=== PATIENT | female | born 1980 | race Caucasian/White ===

== ENCOUNTER 2018-08-06 08:03 | Emergency (ER) | payer OTHER ==
[~2018-08-06] VITALS: Ht 167.6 cm; Wt 88.5 kg
[~2018-08-06 08:03] MED LIST: COUGH; ZPAK PO
[2018-08-06 08:44] LABS: ABSOLUTE BASOPHILS 0.1 thou/uL (0.0-0.2); ABSOLUTE EOSINOPHILS 0.2 thou/uL (0.0-0.7); ABSOLUTE LYMPHOCYTES 1.5 thou/uL (0.8-5.3); ABSOLUTE MONOCYTES 0.4 thou/uL (0.0-1.2); ABSOLUTE NEUTROPHILS 5.2 thou/uL (1.6-8.1); BASOPHILS 0.9 %; EOSINOPHILS 2.4 %; HEMATOCRIT 41.5 % (37.0-47.0); HEMOGLOBIN 14.5 gm/dL (12.0-15.0); LYMPHOCYTES 19.9 %; MCH 29.5 pg (26.0-34.0); MCHC 34.9 g/dL (28.0-37.0); MCV 84.7 fL (80.0-100.0); MONOCYTES 5.8 %; MPV 8.5 fl. (7.2-11.1); NUCLEATED RBCS 0 /100WBC; PLATELET COUNT* 209 thou/uL (150-400); RDW-CV 12.5 % (10.5-14.5); WBC 7.3 thou/uL (4.0-11.0)
[2018-08-06 08:53] LABS: ANION GAP 10 mmol/L (7-16); BUN 17 mg/dL (7-18); CALCIUM 8.9 mg/dL (8.5-10.1); CHLORIDE 105 mmol/L (98-107); CO2 27 mmol/L (21-32); CREATININE 0.9 mg/dL (0.6-1.3); GLUCOSE 117 mg/dL (70-99); POTASSIUM 4.1 mmol/L (3.5-5.1); SODIUM 142 mmol/L (136-145)
[2018-08-06 09:03] LABS: ALKALINE PHOSPHATASE 114 U/L (46-116); SGOT 25 U/L (15-37); SGPT 63 U/L (30-65); TOTAL BILIRUBIN 0.2 mg/dL (<0.1-1.0); TOTAL PROTEIN 8.1 g/dL (6.4-8.2); TROPONIN-I LEVEL <0.06 ng/mL (<0.06)
[2018-08-06] MEDS ORDERED: ALLEGRA-D 24 H1 EACH PO (09:48)
[2018-08-06 10:00] VITALS: BP 121/72
--- NOTE | 2018-08-06 10:54 | EKG ---
[place] [address] ELECTROCARDIOGRAM REPORT Name: JUAN RODGERS Room: [facility]#: [id number] Admission: 08/06/18 Attend Phys: Discharge: 08/06/18 Date of : 84 Report #: [id number] THIS REPORT FOR: //name// [facility] ED Test Date: 2018-08-06 Test Time: 08:12:20 Pat Name: JUAN RODGERS Department: Room: Gender: F National Coverage Specialist: MADONNA : 1980 Requested By: Vern Luna Order Number: [id number] MD: Deshawn Bustamante Measurements Intervals [place] Rate: 86 P: 55 CA: 145 QRS: 44 QRSD: 88 T: 15 QT: 376 QTc: 450 Interpretive Statements Sinus rhythm Compared to ECG 05/20/2013 23:14:33 Sinus tachycardia no longer present Electronically Signed On 08-06-2018 10:54:10 CDT by Deshawn Bustamante [email or web address] <ELECTRONICALLY SIGNED> By: Deshawn Bustamante MD, [facility] 08/06/18 1054 0812 1 Deshawn Bustamante MD, FACC /EPI
== END 2018-08-06 10:00 | disposition home or self-care (01) ==
LOC: M.ERS 08:03
PROVIDERS: Emergency Medicine Emergency Medical Services
DX: R20.2 Paresthesia of skin (principal); Z88.1 Allergy status to other antibiotic agents; Z88.8 Allergy status to other drugs, medicaments and biological substances; Z90.49 Acquired absence of other specified parts of digestive tract

== ENCOUNTER 2018-08-07 10:03 | Inpatient (IN) | payer OTHER ==
[~2018-08-07] VITALS: Ht 170.2 cm; Wt 89.6 kg
[~2018-08-07 10:03] MED LIST changes: +ALLEGRA-D 24 H1 EACH PO
[2018-08-07 10:31] LABS: ABSOLUTE BASOPHILS 0.1 thou/uL (0.0-0.2); ABSOLUTE EOSINOPHILS 0.1 thou/uL (0.0-0.7); ABSOLUTE LYMPHOCYTES 1.3 thou/uL (0.8-5.3); ABSOLUTE MONOCYTES 0.4 thou/uL (0.0-1.2); ABSOLUTE NEUTROPHILS 9.3 thou/uL (1.6-8.1); BASOPHILS 0.6 %; EOSINOPHILS 0.8 %; HEMATOCRIT 44.4 % (37.0-47.0); HEMOGLOBIN 15.3 gm/dL (12.0-15.0); LYMPHOCYTES 11.8 %; MCHC 34.6 g/dL (28.0-37.0); MCV 83.9 fL (80.0-100.0); MONOCYTES 3.3 %; MPV 8.5 fl. (7.2-11.1); NUCLEATED RBCS 0 /100WBC; PLATELET COUNT* 211 thou/uL (150-400); POLYS 83.5 %; RBC 5.29 mil/uL (4.20-5.00); RDW-CV 12.9 % (10.5-14.5); WBC 11.2 thou/uL (4.0-11.0)
[2018-08-07 10:35] LABS: ANION GAP 13 mmol/L (7-16); BUN 10 mg/dL (7-18); CALCIUM 9.5 mg/dL (8.5-10.1); CHLORIDE 103 mmol/L (98-107); CO2 26 mmol/L (21-32); CREATININE 0.8 mg/dL (0.6-1.3); GLUCOSE 122 mg/dL (70-99); POTASSIUM 4.1 mmol/L (3.5-5.1); SODIUM 142 mmol/L (136-145)
[2018-08-07 10:42] LABS: APTT 24.7 Seconds (25.0-31.3); PROTIME 10.5 Seconds (9.20-11.50)
[2018-08-07 10:45] LABS: ALBUMIN 4.3 g/dL (3.4-5.0); ALKALINE PHOSPHATASE 119 U/L (46-116); SGOT 27 U/L (15-37); SGPT 65 U/L (30-65); TOTAL BILIRUBIN 0.4 mg/dL (<0.1-1.0); TOTAL PROTEIN 8.7 g/dL (6.4-8.2); TROPONIN-I LEVEL <0.06 ng/mL (<0.06)
--- NOTE | 2018-08-07 13:26 | NUR ---
ST ARRIVED FOR SWALLOW EVAL
[2018-08-07 16:45] VITALS: BP 110/68
[2018-08-07 18:15] VITALS: BP 127/68
--- NOTE | 2018-08-07 19:13 | NUR ---
VSS, ASSUMED CARE FROM ER, PT IS A&O4 AND ON RA AND UP WITH STAND BY, NIH IS ONE, SHE IS APHASIC, ANF HAS NUMBNESS IN HANDS AND FEET, PT DENIES ANY PAIN, SHE IS TRACING SR ON THE MONITOR, PT IS GOING DOWN TO MRI NOW, WILL FOLLOW WITH PLAN OF CARE,
[2018-08-07 20:00] VITALS: BP 117/57
[2018-08-08] VITALS: BP 118/79
[2018-08-08 04:00] VITALS: BP 110/54
--- NOTE | 2018-08-08 04:35 | NUR ---
ASSUMED PT CARE AT 1930. ASSESSMENT COMPLETED CHARTED. ABLE TO MAKE NEEDS KNOWN. UP WITH SBA. NO C/O PAIN UNTIL LATER WHEN SHE HAD A HEADACHE. GAVE PRN PAIN MEDICATION AND PT IS NOW RESTING IN BED COMFORTABLY. NIH WAS A 3 DUE TO NUMBNESS AND APHASIA. PT STAYING THE NIGHT. FAMILY WAS IN ROOM TILL ABOUT MIDNIGHT. NOTIFIED DR OF MRI RESULTS WITH NNO. WILL CONTINUE TO MONITOR.
[2018-08-08 08:52] VITALS: BP 125/77
[2018-08-08 11:30] VITALS: BP 125/72
--- NOTE | 2018-08-08 14:00 | NUR ---
vss, assumed care in the am, ASSESSMENT PERFORMED AND CHARTED, FALL PRECAUTIONS IN PLACE AND CALL LIGHT IN REACH, PT IS A&O4 ON RA AND UP WITH STAND BY, PT STATES HEADACH AND RATES PAIN 5 OUT OF 10, PT HAD LP TAP, MRI AND LABS DONE TODAY, PT GOAL IS TO SIT UP IN CHAIR, AND TAKE SHOWER, GOAL WAS MET, HOURLY ROUNDS COMPLETED AND WILL FOLLOW WITH PLAN OF CARE.
[2018-08-08 16:00] VITALS: BP 121/68
[2018-08-08 16:03] LABS: CSF PROTEIN 39.9 mg/dl (15-45)
[2018-08-08 16:07] LABS: IgA 315 mg/dL (87-352); IgG 1189 mg/dL (700-1600); IgM 71 mg/dL (26-217)
[2018-08-08 16:40] LABS: CHOLESTEROL 212 mg/dL (<200); HDL CHOLESTEROL 27 mg/dL (>40); LDL CHOLESTEROL 159 mg/dL (<100); SERUM ASSESSMENT CLEAR; TC:HDL 7.9 Ratio (Not establshd); TRIGLYCERIDE 133 mg/dL (<150); VLDL 27 mg/dL (<40)
[2018-08-08 16:42] LABS: CSF CLARITY CLEAR; CSF COLOR COLORLESS; CSF RBC 2 /mm3; CSF WBC 0 /mm3 (0-10); VOLUME 12 ml
[2018-08-08 20:00] VITALS: BP 115/78
[2018-08-09] VITALS: BP 118/77
[2018-08-09 04:00] VITALS: BP 133/84
--- NOTE | 2018-08-09 06:47 | NUR ---
ASSUMED PT CARE AT 1930. ASSESSMENT COMPLETED CHARTED. ABLE TO MAKE NEEDS KNOWN. UP WITH 1 ASSIST DUE TO WEAKNESS AND NUMBNESS. STAYS IN ROOM WITH PT. PT IS NERVOUS BECAUSE SHE IS NOT SURE WHAT IS HAPPENING TO HER. NIH OF 3 THIS SHIFT. C/O HEADACHE AND GAVE PRN PAIN MEDICATION. WILL CONTINUE TO MONITOR.
[2018-08-09 08:00] VITALS: BP 118/71
--- NOTE | 2018-08-09 09:53 | CON ---
[address] [address] CONSULTATION Name: JUAN RODGERS Room: [address] IN M.R.#: [id number] Admission: 08/07/18 Attend Phys: Sid Puentes Discharge: Date of : 84 Report #: [id number] THIS REPORT FOR: //name// CC: Cherie Yunie Dennis DATE OF SERVICE: 08/08/2018 INFECTIOUS DISEASES CONSULTATION REASON FOR CONSULTATION: I was asked to evaluate concerning generalized weakness and ataxia. HISTORY OF PRESENT ILLNESS: The patient is a 37-year-old otherwise healthy individual who presents with a 3-day history of progressive symptoms that began with blurred vision, paresthesias of upper and lower extremities, mild headache. She has progressed now to double vision with hoarse voice and ataxia. Unable to walk without assistance. She feels a little bit difficult issue with swallowing, although she has had no choking episodes. Overall, she feels relatively strong. She has had no fever, chills or sweats. No injury. No HIV risk factors. She is 21 months post her second child. No breast feeding. She has had no travel. Has exposure to a pet dog. She works at [employer] in [employer]. No alcohol or drug use. No tuberculosis exposure. No woodland exposure. She does go outside with her child, but has had no significant injuries. No bat exposure. No exposure to home-canned foods. She has had no excessive salivation or dry mouth. No nausea or vomiting. Stools have been normal. No urinary complaints. Stools did get loose yesterday. She has had no rash, arthritis symptoms or adenopathy. She has got some sinus congestion and postnasal drip with no cough or shortness of breath. No nausea or vomiting. No abdominal pain. No back pain. No vaginal discharge. ALLERGIES: ERYTHROMYCIN, NITROFURANTOIN. MEDICATIONS: As noted on her MAR, on Melinda-D. PAST MEDICAL HISTORY: SVT, cholecystectomy. FAMILY HISTORY: Noncontributory. SOCIAL HISTORY: Nonsmoker, no significant alcohol intake. She is . REVIEW OF SYSTEMS: Ten-point review was negative other than what is described above. PHYSICAL EXAMINATION: VITAL SIGNS: Afebrile [place] [address] CONSULTATION Name: TIALEFTYJUAN K Room: [address] IN [facility]#: [id number] Admission: 08/07/18 Attend Phys: Sid Puentes Discharge: Date of : 84 Report #: [id number] GENERAL: She is alert and cooperative and pleasant, in no acute distress. She just had a spinal tap and was lying flat in bed. Mildly obese. SKIN: Without rash or decubitus. She did have a tattoo on her back. No adenopathy palpable. HEENT: Eyes without scleral icterus. Pupils were equal, round and reactive to light. I could not get her to accommodate. Mouth without mucositis. Dentition in good repair. She had adequate saliva. NECK: Supple, with no thyromegaly or mass. LUNGS: Clear. HEART: Regular. ABDOMEN: Soft and nontender with no hepatosplenomegaly or mass. GENITAL: Not performed. RECTAL: Not performed. EXTREMITIES: Without clubbing, cyanosis or edema. NEUROLOGIC: Her speech was a bit nasally. She was able to swallow. Extraocular movements were diminished. She could only gaze laterally about half way. Upward gaze and downward gaze was limited. She had good strength in her eyelids and extraorbital muscles. Hearing was normal. Cranial nerves otherwise intact. Strength in the upper and lower extremities was normal. Sensation was diminished in her toes to light touch. Deep tendon reflexes were diminished throughout. Kszc-lq-ogtf testing was a bit ataxic. Unable to get her out of bed due to her recent spinal tap. Mood normal. Mentation normal. LABORATORY STUDIES: Sedimentation rate normal. CRP normal. CPK normal. Troponin negative. TSH normal. Chemistry normal. CBC normal. Chest x-ray clear. CT scan of the head negative. CT angiogram of the head negative, mild mucosal thickening of her sinuses. MRI scan and MRA negative. Immunoglobulins normal. Spinal fluid analysis normal. IMPRESSION: A 37-year-old with what appears to be a fairly rapid progression over the last 3 days of visual disturbance with bulbar weakness including extraocular muscles and I suspect some neck muscle with her voice being nasal. 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 She has symptoms of ataxia, which is yet to be further evaluated. I am not finding any specific infectious etiology at this point and considering possible bulbar Guillain-Tutor Key. Other toxin mediated or autoimmune process also considered. There were no plaques seen and no elevated protein to suggest multiple sclerosis. Does not have the risk factors or other findings for botulism nor does tetanus, rabies or polio. I would also expect Lyme disease would have abnormal CSF. I have discussed the case with attending and Neurology Service. They are generating their differential and further workup. RECOMMENDATIONS: We will empirically place her on doxycycline and ceftriaxone. I do not see any indication at this point for viral therapy. We will check HIV, [address] [place] [address] CONSULTATION Name: JUAN RODGERS Room: [address] IN M.R.#: [id number] Admission: 08/07/18 Attend Phys: Sid Puentes Discharge: Date of : 84 Report #: [id number] Lyme and await viral testing done previously. Repeat MRI scan with contrast has been ordered by Neurology. We will also check vital capacity and have frequent neuro checks. Neurology will decide on any further intervention regarding possible Guillain-Tutor Key empiric treatment. <ELECTRONICALLY SIGNED> By: Lucio Vazquez MD 08/09/18 0953 1720 [id number] Vazquez MD /nt
--- NOTE | 2018-08-09 11:13 | NUR ---
ASSUMED CARE OF PT AT 0730. PT RESTING IN BED, AT BEDSIDE. PT A&0X4, ASPHASIA NOTED. PT COMPLAINS OF HEADACHE, TREATED WITH PRN HYDROCODONE WITH PARTIAL RELIEF. PT ALSO GIVEN PRN XANAX FOR ANXIETY. NIH COMPLETED-REFER TO CHARTING. PT TO HAVE REPEAT MRI TODAY. PT TRACING SR ON THE KETTLE FIRER. ON RA SAT UPPER 90'S. PT DENIES ANY SHORTNESS OF BREATH. VITAL CAPACITY IN PLACE WITH PULMONARY. NEURO CHECKS COMPLETED-REFER TO CHARTING. PT UP WITH 2 ASSIST, WEAKNESS, ATAXIA, NUMBESS AND TINGLING NOTED. PT RECEIVING IV ANTIBIOTICS. ID AND NEURO CONSULT IN PLACE. DR TAY HERE THIS AM AND SPOKE WITH FAMILY FOR AN EXTENDED PERIOD OF TIME. ORDERS RECEIVED FOR NEW MEDICATION PER DR TAY, REFER TO EMAR. PT GOAL FOR TODAY IS PAIN MGMT, MONITOR NIH AND NEURO CHECKS AND NEURO AND ID CONSULT IN PLACE. AM ASSESSMENT CHARTED. MEDICATIONS PER MAR WITH NO DIFFICULTY SWALLOWING NOTED. PT REPOSITIONS SELF. HOURLY ROUNDING OBSERVED, BED IN LOW POSITION. CALL LIGHT WITHIN REACH. WILL CONTINUE PLAN OF CARE.
--- NOTE | 2018-08-09 13:55 | NUR ---
Spoke with , Pt needs to transfer to a higher level of care for possible acute paralytic syndrome v. guillain barre. CM faxed referral to [facility]. Following.
[2018-08-09 16:11] LABS: HIV-1/HIV-2 ANTIBODY Non Reactive (Non Reactive)
--- NOTE | 2018-08-09 16:21 | NUR ---
ORDERS RECEIVED FOR PT TO TRANSFER TO ICU. REPORT GIVEN TO MAGGIE WASHBURN. PT TRANSFERRED TO ICU BED 2 VIA BED WITH ALL BELONGINGS AND CHART. FAMILY AT BEDSIDE AND AWARE.
--- NOTE | 2018-08-09 16:52 | EKG ---
[place] [address] ELECTROCARDIOGRAM REPORT Name: JUAN RODGERS Room: [address] ADM IN M.R.#: [id number] Admission: 08/07/18 Attend Phys: Sid Puentes Discharge: Date of : 84 Report #: [id number] THIS REPORT FOR: //name// [facility] ED Test Date: 2018-08-07 Test Time: 11:48:37 Pat Name: JUAN RODGERS Department: Room: [facility] Gender: F Video News Editor: [place] : 1980 Requested By: Сергей Antony Order Number: [id number] MD: Christiano Cody Measurements Intervals [place] Rate: 68 P: 40 MT: 134 QRS: 42 QRSD: 85 T: 24 QT: 398 QTc: 424 Interpretive Statements Sinus rhythm Low voltage, precordial leads Compared to ECG 08/06/2018 08:12:20 Low QRS voltage now present Electronically Signed On 08-09-2018 16:52:34 CDT by Christiano Cody [email or web address] <ELECTRONICALLY SIGNED> By: Christiano Cody MD, [facility] 08/09/18 1652 1148 1148 Christiano Cody MD, [facility] /EPI
--- NOTE | 2018-08-09 17:06 | NUR ---
PT TRANSFERED FROM TELEMETRY. PT REPORTS HEADACHE, LIGHT SENSITIVITY, SLURRED SPEECH, WEAKNESS AND NUMBESS OF ALL EXTREMITIES AND THROAT. IMMUNE GLOBULIN INFUSING NOW. NO REPORTS BY PT OF ANY SIDE EFFECTS WHILE IT IS INFUSING. SR ON MONITOR. PRN HYDROCODONE GIVEN FOR PAIN. WILL MONITOR.
--- NOTE | 2018-08-09 18:18 | CON ---
[address] [address] CONSULTATION Name: JUAN RODGERS Room: [address] IN M.R.#: [id number] Admission: 08/07/18 Attend Phys: Sid Puentes Discharge: Date of : 84 Report #: [id number] THIS REPORT FOR: //name// CC: Cherie Collins HISTORY OF PRESENT ILLNESS: The patient is a 37-year-old female who on the day of admission states that she noticed slurred speech. A few days ago, the patient felt as though she had a cold and had been taking Sudafed. She has taken no more than two tablets a day. In addition to the difficulty with her speech, she has had blurry vision, but no pain with eye movements. She also has paresthesias in her fingertips and her toes. She is also having significant difficulty with gait. Apparently, the patient had come the day prior to the Emergency Room and was sent home, but when she came back for a second time she was admitted to the hospital. Since that time, the patient has had CT and CTA of the head, which were normal; an MRI of the head without contrast, which was normal; MR angiography of the head, which is normal and an MRI of the orbits with and without contrast, which is normal. The patient has had a lumbar puncture, but these results are pending. PAST MEDICAL HISTORY: SVT. PAST SURGICAL HISTORY: Cholecystectomy. MEDICATIONS: Sudafed twice a day. ALLERGIES: ERYTHROMYCIN AND NITROFURANTOIN. VITAL SIGNS: Temperature is 36.6, pulse rate 81, respiratory rate 16, blood pressure 125/72 and bedside pulse oximetry 100%. LABORATORY DATA: Hematology: White blood cell count 11.2, hemoglobin 15.3, hematocrit 44.4, MCV 83.9 and platelet count 211,000. INR 1.1. Spinal fluid pending. Chemistry: Sodium 142, potassium 4.1, chloride 103, carbon dioxide 26, BUN 10, creatinine 0.8, glucose 122, calcium 9.5, total bilirubin 0.4, AST 27, ALT 65, alkaline phosphatase 119 and creatinine kinase 83. Troponin is normal. C-reactive protein is normal. Total protein 8.7 and albumin 4.3. TSH 1.362. NEUROLOGIC EXAMINATION: Cranial nerves 2-12 are grossly intact. I saw no evidence of nystagmus. Motor exam demonstrates a normal strength in the upper and lower extremities. Reflexes are trace. Plantar responses are clearly flexor. Coordination with mtinmg-ss-dyzg testing, the patient has dysmetria in the upper extremities when asked. Ekzs-le-bdes in the lower extremities was unremarkable. Check reflex was normal. Sensory exam: With the eyes closed, [place] [address] CONSULTATION Name: JUAN RODGERS Room: [address] IN [facility]#: [id number] Admission: 08/07/18 Attend Phys: Sid Puentes Discharge: Date of : 84 Report #: [id number] the patient was asked to touch her nose. When she touched her nose, she poked herself in the forehead very forcefully. Gait was not tested. However, the nurse told me that the patient was very unsteady and required two people to help her walk. IMPRESSION: This patient has nasal speech and dysmetria in the upper extremities and paresthesias in the extremities. I explained to the patient that at this point, it does not appear that she has multiple sclerosis. However, the MRI of the head was done without contrast and I will order an MRI of the head tomorrow with contrast along with an MRI of the cervical spine with and without contrast. I have drawn additional lab work for ataxia. This includes lipid profile, syphilis antibodies, immunofixation, TEOFILO, sedimentation rate and vitamin B12. She has extensive viral lab work pending. I may add a West Nile virus to this as well. Another possibility would be GBS. We will wait for the LP results. Dr. Chew will be seeing the patient as of Thursday. Thank you for your kind referral of this patient. <ELECTRONICALLY SIGNED> By: Olivia Saenz DO 08/09/18 1818 1604 [id number] Saenz DO /nt
--- NOTE | 2018-08-09 19:35 | NUR ---
PT TRANSFERED TO [facility]. REPORT GIVEN TO MAGGIE SR. PT TRANSFERED PER EMS. ALL BELONGINGS SENT WITH .
== END 2018-08-09 19:20 | disposition short-term general hospital (02) | DRG 95 ==
LOC: M.ERS 10:03 → M.TBA-ER 11:48 → M.2W 11:48 → M.ICU 08-09 16:20
PROVIDERS: Family Medicine; Psychiatry & Neurology Neurology; Specialist; ADMIT Internal Medicine
PROC: B01B1ZZ Fluoroscopy of Spinal Cord using Low Osmolar Contrast (ICD-10-PCS; principal; 2018-08-08)
PROC: 009U3ZX Drainage of Spinal Canal, Percutaneous Approach, Diagnostic (ICD-10-PCS; principal; 2018-08-08)
DX: G61.0 Guillain-Barre syndrome (principal); G45.9 Transient cerebral ischemic attack, unspecified; R65.10 Systemic inflammatory response syndrome (SIRS) of non-infectious origin without acute organ dysfunction; G36.0 Neuromyelitis optica [Devic]; G83.9 Paralytic syndrome, unspecified; R47.1 Dysarthria and anarthria; H53.2 Diplopia; I77.6 Arteritis, unspecified; G35 Multiple sclerosis; K76.0 Fatty (change of) liver, not elsewhere classified; Z90.49 Acquired absence of other specified parts of digestive tract; Z88.1 Allergy status to other antibiotic agents; Z88.8 Allergy status to other drugs, medicaments and biological substances

== ENCOUNTER 2018-08-13 17:07 | Inpatient (IN) | payer OTHER ==
[~2018-08-13] VITALS: Ht 167.6 cm; Wt 86.2 kg
[2018-08-13] MEDS ORDERED: TYLENOL325 MG PO (18:12)
[2018-08-13] MEDS ORDERED: MELATONIN5 M1 PO (18:12)
[2018-08-13] MEDS ORDERED: TRAZODONE HCL50 MG PO (18:15)
[2018-08-13] MEDS ORDERED: ZYRTEC10 MG PO (18:18)
[2018-08-13 18:21] VITALS: BP 129/81
--- NOTE | 2018-08-14 01:36 | NUR ---
PATIENT ARRIVED IN UNIT @ 1747 FROM [facility] W/ DX-GUILLIAN BARRE SYNDROME-VARIANT -BOSE GARCIA SYNDROME.GENERALIZED NUMBNESS & TINGLING FROM HEAD TO TOES. HAS DOUBLE VISION,DYSPHAGIA & ATAXIA.ASSUMED CARE @ 1927-A 37 YEAR OLD SITTING IN RECLINER W/ MOTHER,UNCLE SON & DAUGHTER VISITING @ THIS TIME.CHAIR ALARM ON ALREADY @ .WANTS DOOR CLOSED @ ALL TIMES.WANTS TO WALK TO TOILET.HAND HELD ASSIST BY 2 NURSES W/ GAIT BELT @ 2144.VERY UNSTEADY & ATAXIC.WILL USE BSC @ N IGHT. STAYING ALL NIGHT.TO BED @ 2149 W/ HOB UP.BED ALARM PUT ON @ 2149.REFUSED HS DOSE COLACE.HAD MOD BM AFTER ARRIVAL IN UNIT.REFUSED HS DOSE MELATONIN.PREFERS PRN DESYREL 50 MG & GIVEN @ 2146. SEE PAIN MANAGEMENT @ 2217.TURNS SELF @ NIGHT.ON HOURLY ROUNDS.HOISTER DOING ODD HOUR ROUNDS.
[2018-08-14 04:13] LABS: CALCIUM 9.4 mg/dL (8.5-10.1); CREATININE 0.8 mg/dL (0.6-1.3); POTASSIUM 3.8 mmol/L (3.5-5.1)
[2018-08-14 04:14] LABS: HEMATOCRIT 39.6 % (37.0-47.0); HEMOGLOBIN 14.1 gm/dL (12.0-15.0); MCH 29.6 pg (26.0-34.0); MCHC 35.5 g/dL (28.0-37.0); MCV 83.4 fL (80.0-100.0); RBC 4.76 mil/uL (4.20-5.00); RDW-CV 12.8 % (10.5-14.5); WBC 7.1 thou/uL (4.0-11.0)
[2018-08-14 04:29] LABS: URINE BILIRUBIN NEGATIVE (Negative); URINE BLOOD TRACE (Negative); URINE CLARITY CLEAR; URINE COLOR DARK YELLOW; URINE GLUCOSE-RANDOM NEGATIVE (Negative); URINE KETONES NEGATIVE (Negative); URINE LEUKOCYTES NEGATIVE (Negative); URINE NITRITE NEGATIVE (Negative); URINE PROTEIN 1+ (Negative); URINE SPECIFIC GRAVITY >= 1.030 (1.005-1.030); URINE UROBILINOGEN 0.2 E.U./dl (0.2-1.0)
--- NOTE | 2018-08-14 05:08 | NUR ---
SLEPT LATE SINCE 0000 & SLEPT GOOD.REFUSED HS SNACK.AWAKENED BY LAB FOR BLOOD DRAW @ 0400.USED BSC @ 0410 W/ 2 ASSIST.VOIDED 100 ML.BLADDER SCAN @ 0420-131 ML.URINE SENT TO LAB FOR UA.BRP X1 BEFORE HS.USED BSC X1.TOOK MED ONE @ A TIME @ 6205 W/ NECTAR THICK JUICE W/ CHIN TUCK.
[2018-08-14 07:28] VITALS: BP 129/80
--- NOTE | 2018-08-14 14:58 | NUR ---
ASSUMED CARE AT 0730. ALERT ORIENTED PLEASANT COOPERATIVE. HX OF GUILLIAN BARRE SYNDROME. TRANSFERS WITH 1 ASSIST G BELT WALKER FROM W/C TO RECLINER. FEEDS SELF WITH SET UP ABLE TO OPEN JUICE. ON REGULAR DIET AND NECTAR THICK LIQUIDS TAKES MEDS 1 AT A TIME. MEDICATED X 1 WITH TYLENOL FOR C/O BACK SPASMS RADIATING DOWN BOTH LEGS WITH SOME RELIEF STATED. AT BEDSIDE HAS PARTICIPATED IN THERAPIES THROUGHOUT THE DAY. MULTI VISITORS TODAY. APPETITE FAIR.
--- NOTE | 2018-08-14 16:04 | NUR ---
PT. HAS PARTICIPATED IN THERAPIES TODAY. DR. VELASQUEZ ORDERED REQUIP AND FLEXERIL AND CONSULTED DR. STONER NEUROLOGIST. DR. ALBER ARAUJO ORDERED PROTONIX AND LOVENOX AND A SWALLOW STUDY FOR THURSDAY. PT. LIKES ICE CHIPS.
[2018-08-14 20:00] VITALS: BP 124/84
--- NOTE | 2018-08-14 23:37 | NUR ---
ASSUMED CARE AT 1930. PATIENT UP WITH ONE, GAIT BELT, WALKER. HAS DOUBLE VISION AT TIMES. TAKES PILLS WHOLE ONE AT A TIME WITH THICKENED LIQUIDS. PREFERS APPLE AND CRANBERRY. TURNS SELF. VOIDS PER TOILET. TOOK REQUIP AND FLEXARIL AT HS, DECLINED APAP AT THIS TIME TO SEE IF THE NEW MEDS WORK BETTER. HUSB STAYING THE NIGHT. HOURLY ROUNDS CONTINUE. BED ALARM ON. CALL LITE IN REACH.
[2018-08-15 04:03] LABS: HEMOGLOBIN 14.4 gm/dL (12.0-15.0); MCH 28.7 pg (26.0-34.0); MCHC 34.2 g/dL (28.0-37.0); MCV 83.9 fL (80.0-100.0); MPV 8.7 fl. (7.2-11.1); RDW-CV 12.7 % (10.5-14.5); WBC 6.6 thou/uL (4.0-11.0)
[2018-08-15 04:15] LABS: CALCIUM 9.1 mg/dL (8.5-10.1); CREATININE 0.7 mg/dL (0.6-1.3); MAGNESIUM 2.4 mg/dL (1.8-2.4); POTASSIUM 3.9 mmol/L (3.5-5.1)
--- NOTE | 2018-08-15 05:39 | NUR ---
SLEPT MOST OF THE NIGHT. UP TO VOID ONCE AFTER GOING TO BED. UP WITH ONE, GAIT BELT, WALKER. STEADYING ASSIST AT TIMES. VOIDED PER TOILET, WILL PUT RISER ON TOILET FOR FUTURE USE. MEDICATED FOR PAIN WITH RELIEF. HOURLY ROUNDS CONTINUE. BED ALARM ON. CALL LITE IN REACH.
[2018-08-15 07:44] VITALS: BP 131/90
--- NOTE | 2018-08-15 14:03 | NUR ---
ASSUMED CARE AT 0730. ALERT ORIENTED PLEASANT COOPERATIVE. HX OF GUILLIAN BARRE SYNDROME. TRANSFERS WITH SBA G BELT WALKER. GAIT IS STEADIER TODAY THAN YESTERDAY. DENIES NEED FOR PRN MEDS THIS A.M. HERE AND FEMALE VISITOR. ABLE TO FEED SELF BUT APPETITE FAIR TODAY. TAKES MEDS WITH NECTAR THICK LIQUIDS. TOOK SHOWER THIS A.M. SBA FOR SAFETY. AMBULATES TO BR TO VOID ABLE TO DO HYGEINE AND CLOTHING ADJUSTMENTS. DR. VELASQUEZ ROUNDED NEW ORDERS. TOOK TYLENOL AROUND 1320 FOR C/O NECK DISCOMFORT RATED A 3 ON PAIN SCALE..
[2018-08-15 21:00] VITALS: BP 117/83
--- NOTE | 2018-08-16 05:21 | NUR ---
ASSUMED CARES AT 1920. ALERT AND ORIENTED X 4. PLEASANT. HAS EYE PATCH FOR DOUBLE VISION. C/O PAIN TO NECK, BACK, HEADACHE. TYLENOL GIVEN FOR PAIN. TOOK MELATONIN AND FLEXERIL AT BEDTIME. MIN ASSIST WITH GAIT BELT AND WALKER. GAIT IMPROVING SOME. STEADY ASSIST. UP TO BATHROOM. DOES OWN CARES. SLEPT OVERNIGHT. CALL LIGHT IN REACH.
[2018-08-16 08:09] VITALS: BP 118/81
--- NOTE | 2018-08-16 10:44 | NUR ---
SW met with pt to complete initial assessment, introduce self, and SW role on inpt rehab unit. Pt alert, oriented, pleasant. Pt lives at home with her and 15 yo son and almost 2 yr old dtr. Pt has a good support system in her as well as mother and sister who live closeby and other family who also live in the area. Pt lives in a home where she could have her needs met all on one level. Pt said that her family found her a shower chair and toilet seat riser. Pt may need a RW ordered at dc depending on therapy recommendations and pt needs at time of dc. Pt is very hopeful to be able to dc by the end of this week. SW discussed team conference to be held on Thursday and SW to continue to follow to assist with safe dc planning.
--- NOTE | 2018-08-16 12:24 | NUR ---
Nutrition: Pt admitted to rehab with GBS. Eating regular diet with fair appetite - feeds self. Albumin 4.3. Wt: 190#. RX noted. BM yday. Low nutrition risk at this time. Will follow weekly on rehab unit.
--- NOTE | 2018-08-16 13:11 | NUR ---
AM ASSESSMENT AND VITAL SIGNS COMPLETED DOCUMENTED. PT HAS BEEN PLEASANT AND COOPERATIVE. PT WEARS AN EYE PATCH TO REDUCE DOUBLE VISION ISSUES. PT IS AMBULATORY WITH CONTACT GUARD AND WALKER. PRN TYLENOL GIVEN FOR C/O HEADACHE WITH SOME RELIEF. FALL PRECAUTIONS AND HOURLY ROUNDING CONTINUE.
--- NOTE | 2018-08-16 16:38 | NUR ---
PT HAS MOVED INTO THE TLA AT DR VELASQUEZ's REQUEST SO THAT SHE CAN SLEEP IN A REGULAR BED. PT IS AWARE SHE STILL NEEDS TO CALL STAFF FOR ASSISTANCE. PT HAD A VIDEO SWALLOW THIS AFTERNOON AND HAS BEEN ADVANCED TO THIN LIQUIDS.
[2018-08-16 20:00] VITALS: BP 138/84
--- NOTE | 2018-08-17 05:45 | NUR ---
ASSUMED CARES AT 1920. ALERT AND ORIENTED. PLEASANT. TYLENOL GIVEN FOR HEADACHE. MIN ASSIST WITH GAIT BELT AND WALKER. UP TO BATHROOM. DOES OWN CARES. SLEPT ON REGULAR BED. CALL LIGHT IN REACH.
[2018-08-17 08:11] VITALS: BP 132/90
--- NOTE | 2018-08-17 16:59 | NUR ---
ASSUMMED CARE OF PT AT 0730, PT ALERT AND ORIENTED, PT TRANSFERS WITH SBA/MIN ASSIST GB WALKER CUEING, PT DID COMPLAIN OF HEADACHE THIS AM, MEDICATED WITH TYLENOL, WITH GD RELIEF, PT COMPLAINS OF DOUBLE VISION, EYE PATCH IN PLACE, PT TAKING FOOD AND FLUIDS WELL, TO DININGROOM FOR LUNCH, PARTICIPATED IN ALL THERAPIES, HOURLY ROUNDING COMPLETED, ASSESSMENT COMPLETE, WILL CONTINUE TO MONITOR.
[2018-08-17 20:00] VITALS: BP 124/86
--- NOTE | 2018-08-18 05:32 | NUR ---
ASSUMED PT CARE AT 1930. PT ALERT AND ORIENTED X4, POLITE AND COOPERATIVE WITH CARES. PT VISITING WITH AND CHILDREN AT SHIFT CHANGE. PT UP WITH MIN ASSIST, GAIT BELT WALKER AND CUEING TO BATHROOM TO VOID. NO C/O PAIN. PT SLEPT WELL OVERNIGHT. USES CALL LIGHT APPROPRIATELY. CALL LIGHT AND FREQUENTLY USED ITEMS WITHIN REACH. HOURLY ROUNDING IN PROGRESS, WILL CONTINUE TO MONITOR.
[2018-08-18 08:52] VITALS: BP 111/79
--- NOTE | 2018-08-18 14:12 | NUR ---
DESIREE and Dr Traylor met with pt to review team conference summary and plan for pt to dc home with family and friend support on Sunday 08/20. Pt in agreement with plan. Team recommending OP therapy follow up and SW to provide options and assist with arranging OP at dc. Pt will need RW ordered for dc as well; SW to discuss with pt. SW to continue to follow to assist with finalizing safe dc plan.
--- NOTE | 2018-08-18 16:40 | NUR ---
PT PROGRESSING TOWARDS GOALS THIS SHIFT. VSS. WEEKLY TEAM MEETING COMPLETED. ANTICIPATE DC HOME THURSDAY. NO OTHER CONCERNS AT THIS TIME. CLWR. WCTM.
--- NOTE | 2018-08-18 18:00 | CON ---
[address] [address] CONSULTATION Name: JUAN RODGERS Room: [address] IN M.R.#: [id number] Admission: 08/13/18 Attend Phys: Nole Traylor MD Discharge: Date of : 84 Report #: [id number] THIS REPORT FOR: //name// CC: Noel Collins DATE OF SERVICE: 08/14/2018 DICTATING PHYSICIAN: Dr. Liriano. HISTORY OF PRESENT ILLNESS: A 37-year-old female patient, who is well known to me from the last admission. 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 Subsequently, she was transferred to [facility]. She received 5 dosages of gamma globulin and already started showing some improvement. Her diplopia is there, but is better. She intermittently uses the patch. REVIEW OF SYSTEMS: Summarized in my prior note and it has been mostly unremarkable. PAST MEDICAL HISTORY: Negative for similar problems. FAMILY HISTORY: Unremarkable. SOCIAL HISTORY: She has a very supporting large family. PHYSICAL EXAMINATION: Her examination today indicates she is still weak. She moves all 4 extremities. Her eye movement is trace better. She was basically fixed the last time she came in, but now she is able to move her eyes slightly. She still has marked diplopia. Rest of the neurological examination is unchanged. No change in cardiac status or any autonomic instability so far. Blood pressure is 129/80, pulse is 104 and temperature is 98. LABORATORY DATA: Lab indicates normal white count. Potassium is normal. GFR is normal. No imaging study was done this time, but extensive imaging study was done last time. 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 RECOMMENDATIONS: The patient does not require anything neurologically for the time being, except she requires extensive PT, OT. I went back and reviewed the records and we had sent the myasthenia markers and they came out to be negative so far for binding antibodies, but others are pending. I also will review the records from [facility], but I do not believe that [place] [address] CONSULTATION Name: JUAN RODGERS Room: [address] IN [facility]#: [id number] Admission: 08/13/18 Attend Phys: Noel Traylor MD Discharge: Date of : 84 Report #: [id number] further. All of it was discussed with the patient and the family and they understands that. <ELECTRONICALLY SIGNED> By: Flex Chew MD 08/18/18 1800 [id number] [id number] Chew MD /nt
[2018-08-18 20:00] VITALS: BP 115/73
--- NOTE | 2018-08-19 05:30 | NUR ---
ASSUMED PT CARE AT 1930. PT ALERT AND ORIENTED X4, POLITE AND COOPERATIVE WITH CARES. PT VISITING WITH FAMILY AT SHIFT CHANGE. PT UP WITH MIN ASSIST, GAIT BELT, WALKER AND CUEING TO BATHROOM TO VOID. PT C/O HEADACHE, SCHEDULED TYLENOL WITH EVENING MEDS. IN ROOM OVERNIGHT. PT USES CALL LIGHT APPROPRIATELY. CALL LIGHT AND FREQUENTLY USED ITEMS WITHIN REACH. HOURLY ROUNDING IN PROGRESS, WILL CONTINUE TO MONITOR.
[2018-08-19 08:00] VITALS: BP 120/74
--- NOTE | 2018-08-19 17:35 | NUR ---
AM ASSESSMENT AND VITLA SIGNS COMPLETED DOCUMENTED. PT CONTINUES TO WORK WITH ALL THERAPIES AND PLANS TO CONTINUE OUTPATIENT THERAPY AFTER DISCHARGE TOMMORROW. PT IS USING A WALKER FOR BALANCE WITH AMBULATION AND USES A WHEELCHAIR FOR MOBILITY WHEN IN HER ROOM. FALL PRECAUTIONS AND HOURLY ROUNDING CONTINUE.
[2018-08-19 20:00] VITALS: BP 116/86
--- NOTE | 2018-08-20 05:22 | NUR ---
ASSUMED CARES AT 1920. ALERT AND ORIENTED. PLEASANT. TYLENOL GIVEN FOR HEADACHE. MIN ASSIST WITH GAIT BELT AND WALKER. UP TO BATHROOM. DOES OWN CARES. STAYED OVERNIGHT. NO ISSUES. CALL LIGHT IN REACH.
[2018-08-20 08:00] VITALS: BP 110/74
[2018-08-20 10:21] VITALS: BP 110/74
[2018-08-20] MEDS ORDERED: REQUIP 0.25 M0.25 M1 PO (10:35)
[2018-08-20] MEDS ORDERED: CYCLOBENZAPRINE5 MG PO (10:47)
[2018-08-20] MEDS ORDERED: COLACE100 MG PO (10:54)
[2018-08-20 11:27] LABS: HEMATOCRIT 42.3 % (37.0-47.0); MCH 29.6 pg (26.0-34.0); MCHC 35.5 g/dL (28.0-37.0); MCV 83.4 fL (80.0-100.0); RBC 5.07 mil/uL (4.20-5.00); RDW-CV 12.8 % (10.5-14.5); WBC 5.6 thou/uL (4.0-11.0)
[2018-08-20 11:37] LABS: CALCIUM 9.4 mg/dL (8.5-10.1); CREATININE 0.7 mg/dL (0.6-1.3); POTASSIUM 4.1 mmol/L (3.5-5.1); TOTAL BILIRUBIN 0.4 mg/dL (<0.1-1.0); TOTAL PROTEIN 9.6 g/dL (6.4-8.2)
[2018-08-20 12:03] VITALS: BP 110/74
--- NOTE | 2018-08-20 12:17 | NUR ---
Pt to dc home with family support today. SW discussed OP therapy options and the two options in [place] only offer PT so pt agreeable to [facility] OP therapy follow up where she can receive PT and ST (no OT available however). SW called and spoke with intake, and faxed referral and orders. Pt has RW and shower chair and support available at all times.
--- NOTE | 2018-08-20 14:37 | NUR ---
PT HAS MET HER DISCHARGE GOALS. DISCHARGE INSTRUCTIONS, PRESCRIPTIONS AND NEW MEDICATION INFORMATION PROVIDED TO PATIENT.
--- NOTE | 2018-08-20 14:54 | NUR ---
PT AND BELONGINGS TRANSPORTED TO THE EXIT VIA WHEELCHAIR, ASSISTED INTO VAN, DISCHARGED HOME IN STABLE CONDITION.
== END 2018-08-20 14:56 | disposition home or self-care (01) | DRG 96 ==
LOC: M.REH 17:07
PROVIDERS: Internal Medicine; ADMIT Physical Medicine & Rehabilitation
DX: G61.0 Guillain-Barre syndrome (principal); R13.10 Dysphagia, unspecified; R47.1 Dysarthria and anarthria; G25.81 Restless legs syndrome; H53.2 Diplopia; R27.0 Ataxia, unspecified; Z88.1 Allergy status to other antibiotic agents; Z88.8 Allergy status to other drugs, medicaments and biological substances; Z79.899 Other long term (current) drug therapy; Z90.49 Acquired absence of other specified parts of digestive tract

== ENCOUNTER 2019-04-03 11:40 | Emergency (ER) | payer OTHER ==
[~2019-04-03] VITALS: Ht 167.6 cm; Wt 90.7 kg
[~2019-04-03 11:40] MED LIST changes: +COLACE100 MG PO; +CYCLOBENZAPRINE5 MG PO; +MELATONIN5 M1 PO; +REQUIP 0.25 M0.25 M1 PO; +TRAZODONE HCL50 MG PO; +TYLENOL325 MG PO; +ZYRTEC10 MG PO
[2019-04-03 11:47] VITALS: BP 130/76
[2019-04-03 12:11] LABS: INFLUENZA A ANTIGEN Positive (Negative); INFLUENZA B ANTIGEN Negative (Negative)
[2019-04-03] MEDS ORDERED: TAMIFLU75 MG PO (12:13)
== END 2019-04-03 12:22 | disposition home or self-care (01) ==
LOC: M.ERS 11:40
PROVIDERS: Family Medicine
DX: J10.1 Influenza due to other identified influenza virus with other respiratory manifestations (principal); Z88.1 Allergy status to other antibiotic agents; Z88.8 Allergy status to other drugs, medicaments and biological substances; Z90.49 Acquired absence of other specified parts of digestive tract; Z86.73 Personal history of transient ischemic attack (TIA), and cerebral infarction without residual deficits

== ENCOUNTER 2020-10-30 18:35 | Emergency (ER) | payer OTHER ==
[~2020-10-30] VITALS: Ht 167.6 cm; Wt 95.3 kg
[~2020-10-30 18:35] MED LIST changes: +TAMIFLU75 MG PO
[2020-10-30] MEDS ORDERED: ZOFRAN ODT4 MG PO (19:35)
[2020-10-30 19:51] VITALS: BP 149/87
== END 2020-10-30 19:52 | disposition home or self-care (01) ==
LOC: M.ERS 18:35
DX: R50.9 Fever, unspecified (principal); Z20.822 Contact with and (suspected) exposure to COVID-19; Z90.49 Acquired absence of other specified parts of digestive tract; Z88.1 Allergy status to other antibiotic agents; Z91.09 Other allergy status, other than to drugs and biological substances; Z88.8 Allergy status to other drugs, medicaments and biological substances

== ENCOUNTER → 2021-01-03 | Outpatient (CLI) | payer OTHER ==
[~2021-01-03] MED LIST changes: +ZOFRAN ODT4 MG PO
== END ==
LOC: M.RAD 09:54
PROVIDERS: ATTEND Nurse Practitioner Family
DX: Z12.31 Encounter for screening mammogram for malignant neoplasm of breast (principal)

== ENCOUNTER → 2021-02-08 | Outpatient (CLI) | payer OTHER ==
[2021-02-08 09:01] LABS: ABSOLUTE BASOPHILS 0.1 thou/uL (0.0-0.2); ABSOLUTE EOSINOPHILS 0.1 thou/uL (0.0-0.7); ABSOLUTE LYMPHOCYTES 1.8 thou/uL (0.8-5.3); ABSOLUTE MONOCYTES 0.4 thou/uL (0.0-1.2); ABSOLUTE NEUTROPHILS 6.5 thou/uL (1.6-8.1); BASOPHILS 0.7 %; EOSINOPHILS 1.3 %; HEMATOCRIT 41.9 % (37.0-47.0); HEMOGLOBIN 14.8 gm/dL (12.0-15.0); LYMPHOCYTES 20.1 %; MCH 29.9 pg (26.0-34.0); MCHC 35.2 g/dL (28.0-37.0); MONOCYTES 4.6 %; MPV 8.4 fl. (7.2-11.1); NUCLEATED RBCS 0 /100WBC; PLATELET COUNT* 220 thou/uL (150-400); POLYS 73.3 %; RBC 4.93 mil/uL (4.20-5.00); RDW-CV 12.6 % (10.5-14.5); WBC 8.8 thou/uL (4.0-11.0)
[2021-02-08 09:13] LABS: ALKALINE PHOSPHATASE 90 U/L (46-116); ANION GAP 9 mmol/L (7-16); BUN 11 mg/dL (7-18); CALCIUM 9.4 mg/dL (8.5-10.1); CHLORIDE 104 mmol/L (98-107); CHOLESTEROL 184 mg/dL (<200); CO2 27 mmol/L (21-32); CREATININE 0.8 mg/dL (0.6-1.3); GLUCOSE 106 mg/dL (70-99); HDL CHOLESTEROL 29 mg/dL (>40); LDL CHOLESTEROL 117 mg/dL (<100); POTASSIUM 4.2 mmol/L (3.5-5.1); SGOT 17 U/L (15-37); SGPT 36 U/L (30-65); SODIUM 140 mmol/L (136-145); TC:HDL 6.3 Ratio (Not establshd); TOTAL BILIRUBIN 0.4 mg/dL (<0.1-1.0); TRIGLYCERIDE 191 mg/dL (<150); VLDL 38 mg/dL (<40)
[2021-02-08 09:16] LABS: SERUM ASSESSMENT Clear
== END ==
LOC: M.LAB 08:15
PROVIDERS: ATTEND Nurse Practitioner Family
DX: Z13.220 Encounter for screening for lipoid disorders (principal); Z13.29 Encounter for screening for other suspected endocrine disorder; K21.9 Gastro-esophageal reflux disease without esophagitis; G61.0 Guillain-Barre syndrome

== ENCOUNTER → 2021-03-07 | Outpatient (CLI) | payer OTHER | LOC: M.LAB 16:34 | PROVIDERS: ATTEND Nurse Practitioner Family | DX: Z13.220 Encounter for screening for lipoid disorders (principal); Z13.29 Encounter for screening for other suspected endocrine disorder; K21.9 Gastro-esophageal reflux disease without esophagitis; G61.0 Guillain-Barre syndrome ==